=== PATIENT | female | born 1965 | race Caucasian/White ===

== ENCOUNTER 2016-07-10 16:41 | Emergency (ER) | payer BC ==
[~2016-07-10] VITALS: Ht 162.6 cm; Wt 68.0 kg
[2016-07-10 16:41] VITALS: BP 139/93; PULSE 78; RESP 19; TEMP 97.2; O2SAT 96
[~2016-07-10 16:41] MED LIST: FEXO60TA PO; FLUO10CA65 PO; FLUT1DIS3 IH; TOP25 PO
--- NOTE | 2016-07-10 16:41 | NUR ---
PT REFUSES PAIN MEDICATION FOR C/O CHEST PAIN 09/02.
--- NOTE | 2016-07-10 16:41 | NUR ---
PT PRESENTS NON RADIATING WITH CHEST PAIN 6/10 AFTER MOVING HEACY ITEMS TODAY. BROUGHT BACK TO BED 4 IMMEDIATLEY. PAIN 6/10. MONITOR SHOWS SR. VSS. STSTES SHE HAS HIGH CHOLESTEROL.
--- NOTE | 2016-07-10 16:43 | NUR ---
TESSA BECERRA AT BEDSIDE FOR EVAL.
[2016-07-10 17:25] LABS: BASOPHILS # (AUTO) 0.1 K/uL (0.0-0.2); BASOPHILS % (AUTO) 0.7 % (0.0-2.0); EOSINOPHILS # (AUTO) 0.1 K/uL (0.0-0.4); EOSINOPHILS % (AUTO) 1.6 % (0.0-4.0); HEMATOCRIT 37.3 % (36-48); HEMOGLOBIN 12.6 g/dL (12.0-16.0); LYMPHOCYTES # (AUTO) 2.8 K/uL (1.0-5.5); MEAN CORPUSCULAR HEMOGLOBIN 32 pg (27-31); MEAN CORPUSCULAR HGB CONC 34 % (32-36); MEAN CORPUSCULAR VOLUME 94 fL (79.0-98.0); MONOCYTES # (AUTO) 0.6 K/uL (0.0-1.0); NEUTROPHILS # (AUTO) 4.5 K/uL (1.8-7.7); NEUTROPHILS % (AUTO) 54.7 % (40.0-70.0); PLATELET COUNT (AUTO) 282 K/uL (130-430); RED BLOOD CELL COUNT(AUTO) 3.98 MIL/uL (4.2-6.2); RED CELL DISTRIBUTION WIDTH 12.3 % (9.0-15.0); WHITE BLOOD COUNT (AUTO) 8.1 K/uL (4.8-10.8)
[2016-07-10 17:35] LABS: CALCIUM 8.6 mg/dL (8.4-11.0); CREATININE 0.89 mg/dL (0.55-1.30); POTASSIUM 3.6 mmol/L (3.5-5.1)
[2016-07-10 17:40] LABS: ALBUMIN 3.8 g/dL (3.4-4.8); TOTAL BILIRUBIN 0.2 mg/dL (0.0-1.0); TOTAL PROTEIN, SERUM 7.3 g/dL (6.4-8.3)
--- NOTE | 2016-07-10 17:43 | NUR ---
UPTO BATHROOM FOR URINE SAMPLE.
[2016-07-10 17:45] LABS: PROTHROMBIN TIME 10.5 SECS (9.5-12.5)
[2016-07-10 18:50] VITALS: BP 127/90; PULSE 70; RESP 20; TEMP 97.2; O2SAT 98
== END 2016-07-10 18:48 | disposition home or self-care (01) ==
LOC: SED 16:41
DX: R07.89 Other chest pain (principal); J45.909 Unspecified asthma, uncomplicated; E78.00 Pure hypercholesterolemia, unspecified; Z88.1 Allergy status to other antibiotic agents
CPT/HCPCS: 36415; 71010; 80053; 81025; 82550-TC; 83880; 84484; 84703; 85025; 85610-TC; 85730-TC; 93005; 99285